=== PATIENT | male | born 1950 | race Caucasian/White ===

== ENCOUNTER 2023-08-30 11:40 | Inpatient (IN) | payer MEDICARE, OTHER ==
[~2023-08-30] VITALS: Ht 172.7 cm; Wt 57.2 kg
[2023-08-30] MEDS ORDERED: HALO5TAB PO (12:06)
[2023-08-30] MEDS ORDERED: HYDR-501 PO (12:06)
[2023-08-30] MEDS ORDERED: DIPH25CA83 PO (12:06)
[2023-08-30] MEDS ORDERED: MAG30ORA PO (12:06)
[2023-08-30] MEDS ORDERED: CLON0.5T4 PO (12:06)
[2023-08-30] MEDS ORDERED: MULT-213 PO (12:06)
[2023-08-30] MEDS ORDERED: DIVA250T PO (12:06)
[2023-08-30] MEDS ORDERED: ACET325C7 PO (12:06)
[2023-08-30] MEDS ORDERED: NICO1PAT35 TD (12:06)
[2023-08-30] MEDS ORDERED: ZOLP5TAB8 PO (12:06)
[2023-08-30] MEDS ORDERED: MAGN400O6 PO (12:06)
[2023-08-30 12:09] LABS: BASOPHILS % (AUTO) 0.2 % (0.0-2.0); EOSINOPHILS # (AUTO) 0.1 K/uL (0.0-0.7); EOSINOPHILS % (AUTO) 0.9 % (0.0-7.0); HEMOGLOBIN 15.6 g/dL (12.5-16.3); LYMPHOCYTES # (AUTO) 2.1 K/uL (0.8-4.8); LYMPHOCYTES % (AUTO) 20.8 % (20.5-51.5); MEAN CORPUSCULAR HEMOGLOBIN 30.2 uug (23.8-33.4); MEAN CORPUSCULAR HGB CONC 35 g/dL (32.5-36.3); MONOCYTES # (AUTO) 0.7 K/uL (0.1-1.30); MONOCYTES % (AUTO) 7.5 % (0.0-11.0); NEUTROPHILS % (AUTO) 70.6 % (38.5-71.5); PLATELET COUNT (AUTO) 137 K/uL (152-348); RED BLOOD CELL COUNT(AUTO) 5.16 MIL/uL (4.06-5.63); RED CELL DISTRIBUTION WIDTH 14.2 % (12.1-16.2)
[2023-08-30 12:16] LABS: DIFFERENTIAL COMMENT 1
[2023-08-30 12:21] LABS: AMMONIA < 10 umol/L (11-32)
[2023-08-30 12:23] LABS: ETHANOL < 3 MG/DL (0-10)
[2023-08-30 12:27] LABS: ACETAMINOPHEN 3.2 ug/mL (10-30); ALANINE AMINOTRANSFERASE 25 U/L (16-63); ALBUMIN 4.1 g/dL (3.4-5.0); ALKALINE PHOSPHATASE 87 U/L (50-136); ASPARTATE AMINOTRANSFERASE 14 U/L (15-37); BILIRUBIN,DIRECT 0.1 mg/dL (0.0-0.2); BILIRUBIN,TOTAL 0.7 mg/dL (0.2-1.0); CALCIUM 9.4 mg/dL (8.5-10.1); CARBON DIOXIDE 30 mmol/L (21-32); CHLORIDE 102 mmol/L (98-107); CREATININE 0.8 mg/dL (0.6-1.3); GLUCOSE 86 mg/dL (74-106); SODIUM SERUM 141 mmol/L (136-145); TOTAL PROTEIN, SERUM 7.3 g/dL (6.4-8.2); UREA NITROGEN, BLOOD 18 mg/dL (7-18)
[2023-08-30 13:24] LABS: THYROID STIMULATING HORMONE 3.484 mIU/mL (0.358-3.740)
[2023-08-30] MEDS ORDERED: Medication Not On Formulary EA (Acetaminophen (Tylenol) 650 MG) PO SCH (13:30)
[2023-08-30] MEDS ORDERED: DIVALPROEX ER 250 MG TAB.SR.24H PO SCH (17:00)
[2023-08-30 19:00] VITALS: BP 95/52; TEMP 98.3; O2SAT 98
[2023-08-30] MEDS ORDERED: MAG HYDROX/AL HYDROX/SIMETH 30 ML LIQUID UDC PO PRN (20:15)
[2023-08-30] MEDS ORDERED: MAGNESIUM HYDROXIDE 30 ML LIQUID UDC PO PRN (20:15)
[2023-08-30] MEDS: BLOOD SUGAR DIAGNOSTIC 1 EACH STRIP VI ONE (20:20)
[2023-08-30] MEDS: ZOLPIDEM 5 MG TABLET PO PRN (20:47)
[2023-08-31] MEDS ORDERED: DIVA250T4 PO (06:52)
[2023-08-31] MEDS ORDERED: DOCU250C14 PO (06:53)
[2023-08-31 08:09] VITALS: BP 113/58; TEMP 98.2; O2SAT 96
[2023-08-31] MEDS: MULTIVIT, IRON, MIN NO. 8, FA TABLET PO SCH (08:50)
[2023-08-31] MEDS: DIVALPROEX 250 MG TABLET.DR PO SCH (08:50)
[2023-08-31] MEDS: NICOTINE 21 MG/24HR PATCH TD SCH (08:51)
[2023-08-31] MEDS: HALOPERIDOL 5 MG TABLET PO SCH (13:15)
[2023-08-31] MEDS: CLONAZEPAM 0.5 MG TABLET PO SCH (13:16)
[2023-08-31 16:37] VITALS: BP 127/60; TEMP 97.8; O2SAT 96
[2023-08-31] MEDS: LORAZEPAM 1 MG TABLET PO PRN (20:28)
[2023-08-31] MEDS: ACETAMINOPHEN 325 MG TABLET PO PRN (21:43)
[2023-09-01 08:35] VITALS: BP 121/61; TEMP 97.7; O2SAT 98
[2023-09-01 16:20] LABS: VALPROIC ACID 19 ug/mL (50-100)
[2023-09-01 16:47] VITALS: BP 127/86; TEMP 97.7; O2SAT 98
[2023-09-01] MEDS ORDERED: DIVALPROEX 500 MG TABLET.DR PO SCH (17:00)
[2023-09-01 17:05] LABS: *BILIRUBIN,URIN NEGATIVE (NEGATIVE); *BLOOD, URINE NEGATIVE (NEGATIVE); *CLARITY,URINE CLEAR (CLEAR); *COLOR,URINE YELLOW (YELLOW); *KETONES,URINE NEGATIVE (NEGATIVE); *PROTEIN,URINE NEGATIVE (NEGATIVE); *UROBILINOGEN,URINE 0.2 E.U./dl (NORMAL); LEUKOCYTE ESTERASE ,URINE NEGATIVE (NEGATIVE); NITRITE, URINE NEGATIVE (NEGATIVE); UGLUCOSE NEGATIVE (NEGATIVE)
[2023-09-01 19:49] VITALS: BP 124/76; TEMP 97.9; O2SAT 96
[2023-09-01] MEDS: CLONAZEPAM 0.5 MG TABLET PO SCH (21:36)
[2023-09-01] MEDS: DIVALPROEX 500 MG TABLET.DR PO SCH (21:37)
[2023-09-02] MEDS ORDERED: HYDROXYZINE PAMOATE 25 MG CAPSULE PO PRN (08:15)
[2023-09-02] MEDS: ENSURE ENLIVE (VAN) 240 ML LIQUID PO SCH (08:22)
[2023-09-02 08:32] VITALS: BP 118/85; TEMP 98.1; O2SAT 98
[2023-09-02 16:02] VITALS: BP 103/59; TEMP 98; O2SAT 98
[2023-09-02 19:50] VITALS: BP 116/66; TEMP 98.1; O2SAT 96
[2023-09-03 08:00] VITALS: BP 91/59; TEMP 98; O2SAT 98
[2023-09-03] MEDS: CYANOCOBALAMIN 1,000 MCG TABLET PO SCH (08:30)
[2023-09-03 15:16] VITALS: BP 102/49; TEMP 98; O2SAT 98
[2023-09-03 22:49] VITALS: BP 132/58; TEMP 98.4; O2SAT 98
[2023-09-03 23:07] LABS: FOLATE (FOLIC ACID), SERUM 17.4 ng/mL (>3.0)
[2023-09-04] MEDS: CLONAZEPAM 0.5 MG TABLET PO SCH (08:50)
[2023-09-04 20:00] VITALS: BP_SYST 107; BP_SYST 122; BP_DIAS 51; BP_DIAS 62; TEMP 98; TEMP 98.1; O2SAT 94; O2SAT 99
[2023-09-05 08:05] VITALS: BP 107/48; TEMP 98.2; O2SAT 98
[2023-09-05 15:22] VITALS: BP 121/69; TEMP 98; O2SAT 98
[2023-09-05] MEDS: DIVALPROEX SPRINKLE 125 MG CAP.SPRINK PO SCH (15:43)
[2023-09-05 20:00] VITALS: BP 112/54; TEMP 97.8; O2SAT 95
[2023-09-06 08:01] VITALS: BP 106/52; TEMP 98.4; O2SAT 97
[2023-09-06 15:31] VITALS: BP 103/53; TEMP 98; O2SAT 99
[2023-09-06 19:46] VITALS: BP 109/55; TEMP 98; O2SAT 97
[2023-09-06] MEDS: CLONAZEPAM 0.5 MG TABLET PO SCH (20:43)
[2023-09-07 08:11] VITALS: BP 96/48; TEMP 97.6; O2SAT 98
[2023-09-07 16:57] VITALS: BP 94/46; TEMP 97.7; O2SAT 98
[2023-09-08 07:49] VITALS: BP 114/53; TEMP 97.6; O2SAT 98
[2023-09-08] MEDS: NICOTINE 14 MG/24HR PATCH TD SCH (08:31)
[2023-09-08 16:49] VITALS: BP 146/48; TEMP 98; O2SAT 97
[2023-09-08 20:00] VITALS: BP 119/55; TEMP 98.4; O2SAT 98
[2023-09-09 08:02] VITALS: BP 99/44; TEMP 97.9; O2SAT 98
[2023-09-09] MEDS: HALOPERIDOL LACTATE 10 MG/5 ML ORAL SOLUTION UDC PO SCH (08:44)
[2023-09-09] MEDS: VALPROIC ACID 250 MG/5 ML LIQUID UDC PO SCH (12:12)
[2023-09-09] MEDS ORDERED: VALPROIC ACID 250 MG CAPSULE PO SCH (13:00)
[2023-09-09 15:56] VITALS: BP 108/43; TEMP 97.9; O2SAT 97
[2023-09-09 20:10] VITALS: BP 106/46; TEMP 97.9; O2SAT 96
[2023-09-10 07:30] VITALS: BP 102/49; TEMP 98.2; O2SAT 98
[2023-09-10 15:22] VITALS: BP 126/64; TEMP 98; O2SAT 98
[2023-09-10 20:00] VITALS: BP 109/48; TEMP 98.5; O2SAT 95
[2023-09-10] MEDS: VALPROIC ACID 250 MG/5 ML LIQUID UDC PO SCH (20:29)
[2023-09-10] MEDS: HALOPERIDOL LACTATE 10 MG/5 ML ORAL SOLUTION UDC PO SCH (20:32)
[2023-09-11 08:00] VITALS: BP 100/65; TEMP 98; O2SAT 97
[2023-09-11 16:00] VITALS: BP 100/52; TEMP 98.6; O2SAT 97
[2023-09-11 20:16] VITALS: BP 106/62; TEMP 98.1; O2SAT 96
[2023-09-12 07:30] VITALS: BP 103/45; TEMP 98; O2SAT 96
[2023-09-12 15:04] VITALS: BP 111/61; TEMP 98; O2SAT 98
[2023-09-12 20:15] VITALS: BP 130/68; TEMP 97.8; O2SAT 96
[2023-09-13 07:30] VITALS: BP 117/49; TEMP 98.4; O2SAT 99
== END 2023-09-13 11:30 | DRG 885 ==
LOC: ER 11:41 → GPS 18:14
PROVIDERS: ADMIT Psychiatry & Neurology Psychiatry; ATTEND Nurse Practitioner Acute Care
DX: F25.0 Schizoaffective disorder, bipolar type (principal); N18.9 Chronic kidney disease, unspecified; F03.94 Unspecified dementia, unspecified severity, with anxiety; J44.9 Chronic obstructive pulmonary disease, unspecified; F17.210 Nicotine dependence, cigarettes, uncomplicated; G40.909 Epilepsy, unspecified, not intractable, without status epilepticus; M15.9 Polyosteoarthritis, unspecified; I12.9 Hypertensive chronic kidney disease with stage 1 through stage 4 chronic kidney disease, or unspecified chronic kidney disease; D69.6 Thrombocytopenia, unspecified; R62.7 Adult failure to thrive
CPT/HCPCS: 36415; 70450; 71045; 71250; 80164; 82746; 83605; 83921; 84443; 84484; 85025; 85730; 87040; 93005; G0480; J3490

== ENCOUNTER 2024-11-06 22:50 | Inpatient (IN) | payer MEDICARE, OTHER ==
[~2024-11-06] VITALS: Ht 167.6 cm; Wt 59.4 kg
[2024-11-06 22:50] VITALS: BP 144/77
[~2024-11-06 22:50] MED LIST: ACET325C7 PO; DIPH25CA83 PO; DIVA250T4 PO; DOCU250C14 PO; MAG30ORA PO; MAGN400O6 PO; MULT-213 PO; NICO1PAT35 TD
[2024-11-06] MEDS ORDERED: OLAN10TA73 PO (23:03)
[2024-11-06] MEDS ORDERED: DIPH25TA25 PO (23:03)
[2024-11-06] MEDS ORDERED: ACET-3117 PO (23:03)
[2024-11-06] MEDS ORDERED: HALO5TAB PO (23:03)
[2024-11-06] MEDS ORDERED: HALO50AM2 IM (23:03)
[2024-11-06] MEDS ORDERED: NICO-780 TD (23:03)
[2024-11-06] MEDS ORDERED: TRAZ-257 PO (23:03)
[2024-11-06] MEDS ORDERED: LACO50TA2 PO (23:03)
[2024-11-06] MEDS ORDERED: FOLI1TAB94 PO (23:03)
[2024-11-06] MEDS ORDERED: TRAZ-182 PO (23:03)
[2024-11-06] MEDS ORDERED: POLY250017 PO (23:03)
[2024-11-06] MEDS ORDERED: SENN8.6T19 PO (23:03)
[2024-11-06] MEDS ORDERED: DIVA500T2 PO (23:04)
[2024-11-06 23:31] LABS: *BILIRUBIN,URIN NEGATIVE (NEGATIVE); *BLOOD, URINE NEGATIVE (NEGATIVE); *CLARITY,URINE CLEAR (CLEAR); *COLOR,URINE YELLOW (YELLOW); *KETONES,URINE NEGATIVE (NEGATIVE); *PROTEIN,URINE NEGATIVE (NEGATIVE); *UROBILINOGEN,URINE 0.2 E.U./dl (NORMAL); LEUKOCYTE ESTERASE ,URINE NEGATIVE (NEGATIVE); NITRITE, URINE NEGATIVE (NEGATIVE); UGLUCOSE NEGATIVE (NEGATIVE)
[2024-11-06 23:37] LABS: PLATELET COUNT (AUTO) 149 K/uL (152-348); RED BLOOD CELL COUNT(AUTO) 5.26 MIL/uL (4.06-5.63); RED CELL DISTRIBUTION WIDTH 13.9 % (12.1-16.2); WHITE BLOOD COUNT (AUTO) 8.2 K/uL (3.6-10.2)
[2024-11-06 23:49] LABS: CREATININE 1.0 mg/dL (0.6-1.3); SODIUM SERUM 141 mmol/L (136-145); UREA NITROGEN, BLOOD 25 mg/dL (7-18)
[2024-11-06 23:55] LABS: ASPARTATE AMINOTRANSFERASE 14 U/L (15-37); ETHANOL < 3 MG/DL (0-10); TOTAL PROTEIN, SERUM 6.7 g/dL (6.4-8.2)
[2024-11-06 23:57] LABS: *AMPHETAMINE, URINE NEGATIVE (NEGATIVE); *BARBITURATE, URINE NEGATIVE (NEGATIVE); *BENZODIAZEPINE, URINE NEGATIVE (NEGATIVE); *CANNABINOID, URINE NEGATIVE (NEGATIVE); *COCCAINE, URINE NEGATIVE (NEGATIVE); *OPIATE, URINE NEGATIVE (NEGATIVE); *PHENCYCLIDINE SCREEN,URINE NEGATIVE (NEGATIVE); FENTANYL, URINE NEGATIVE (NEGATIVE)
[2024-11-07 01:15] VITALS: BP 123/52; TEMP 98.1; O2SAT 96
[2024-11-07] MEDS ORDERED: LORAZEPAM 0.5 MG TABLET PO PRN ×2 (01:30)
[2024-11-07] MEDS ORDERED: MAG HYDROX/AL HYDROX/SIMETH 30 ML LIQUID UDC PO PRN (01:30)
[2024-11-07] MEDS ORDERED: TEMAZEPAM 7.5 MG CAPSULE PO PRN (01:30)
[2024-11-07] MEDS ORDERED: MAGNESIUM HYDROXIDE 30 ML LIQUID UDC PO PRN (01:30)
[2024-11-07] MEDS: TEMAZEPAM 7.5 MG CAPSULE PO PRN (01:59)
[2024-11-07] MEDS: ACETAMINOPHEN 325 MG TABLET PO PRN (02:00)
[2024-11-07] MEDS: BLOOD SUGAR DIAGNOSTIC 1 EACH STRIP VI ONE (02:29)
[2024-11-07] MEDS ORDERED: HALO5SYR3 IM (05:58)
[2024-11-07] MEDS ORDERED: POLY17PO4 PO (08:44)
[2024-11-07] MEDS ORDERED: ACET-2154 PO (08:44)
[2024-11-07 09:07] VITALS: BP 115/51; TEMP 98; O2SAT 98
[2024-11-07] MEDS ORDERED: SENNOSIDES 1 TABLET PO PRN (14:00)
[2024-11-07 16:19] VITALS: BP 90/51; TEMP 98.2; O2SAT 98
[2024-11-07] MEDS ORDERED: DIVALPROEX 500 MG TABLET.DR PO SCH (17:00)
[2024-11-07] MEDS ORDERED: DIVALPROEX 250 MG TABLET.DR PO SCH (19:30)
[2024-11-07] MEDS: OLANZAPINE 5 MG TABLET PO SCH (21:00)
[2024-11-07] MEDS: LACOSAMIDE 50 MG TABLET PO SCH (21:04)
[2024-11-08 08:26] LABS: ASPARTATE AMINOTRANSFERASE 14 U/L (15-37); CREATININE 0.6 mg/dL (0.6-1.3); SODIUM SERUM 141 mmol/L (136-145); TOTAL PROTEIN, SERUM 6.6 g/dL (6.4-8.2); UREA NITROGEN, BLOOD 16 mg/dL (7-18)
[2024-11-08] MEDS: NICOTINE 21 MG/24HR PATCH TD SCH (08:42)
[2024-11-08] MEDS: MIRALAX 17 GM POWD.PACK PO SCH (08:42)
[2024-11-08] MEDS: DIVALPROEX 250 MG TABLET.DR PO SCH ×2 (08:42→16:40)
[2024-11-08] MEDS: FOLIC ACID 1 MG TABLET PO SCH (08:43)
[2024-11-08 08:58] VITALS: BP 122/63; TEMP 98.2; O2SAT 98
[2024-11-08] MEDS: ENSURE ENLIVE (VAN) 240 ML LIQUID PO SCH (09:00)
[2024-11-08] MEDS: OLANZAPINE 5 MG TABLET PO SCH (12:02)
[2024-11-08 16:35] VITALS: BP 119/61; TEMP 98; O2SAT 98
[2024-11-08] MEDS: BENZTROPINE MESYLATE 0.5 MG TABLET PO SCH (16:37)
[2024-11-08 19:58] VITALS: BP 139/62; TEMP 98.4; O2SAT 98
[2024-11-09 08:14] VITALS: BP 132/47; TEMP 98.4; O2SAT 98
[2024-11-09 16:29] VITALS: BP 127/61; TEMP 98; O2SAT 98
[2024-11-09 20:00] VITALS: BP 126/68; TEMP 98.1; O2SAT 96
[2024-11-10 08:46] VITALS: BP 123/73; TEMP 98.1; O2SAT 96
[2024-11-10 16:27] VITALS: BP 118/68; TEMP 98.1; O2SAT 96
[2024-11-10 20:07] VITALS: BP 122/64; TEMP 98.1; O2SAT 98
[2024-11-11 08:00] VITALS: BP 110/55; TEMP 97.8; O2SAT 97
[2024-11-11 15:43] VITALS: BP 132/55; TEMP 98.2; O2SAT 99
[2024-11-11 20:00] VITALS: BP 120/50; TEMP 98.3; O2SAT 97
[2024-11-12 08:26] VITALS: BP 125/68; TEMP 97.9; O2SAT 97
[2024-11-12 16:13] VITALS: BP 127/47; TEMP 97.9; O2SAT 98
[2024-11-12 20:00] VITALS: BP 122/70; TEMP 98.1; O2SAT 97
[2024-11-13 08:20] VITALS: BP 120/63; TEMP 98; O2SAT 99
[2024-11-13 20:00] VITALS: BP 121/76; TEMP 97.6; O2SAT 95
[2024-11-13 20:07] LABS: METHYLMALONIC ACID 298.0 nmol/L (0-378)
[2024-11-14 09:52] VITALS: BP 113/69; TEMP 98.2; O2SAT 98
[2024-11-14 15:46] VITALS: BP 115/55; TEMP 98; O2SAT 96
[2024-11-14 20:00] VITALS: BP 117/58; TEMP 97.3; O2SAT 95
[2024-11-15 08:32] VITALS: BP 122/61; TEMP 98; O2SAT 96
[2024-11-15 16:59] VITALS: BP 129/67; TEMP 98; O2SAT 96
[2024-11-15 20:00] VITALS: BP 127/61; TEMP 98; O2SAT 94
[2024-11-16 08:10] VITALS: BP 123/61; TEMP 98; O2SAT 96
[2024-11-16] MEDS: NICOTINE 14 MG/24HR PATCH TD SCH (08:45)
[2024-11-16 16:17] VITALS: BP 122/70; TEMP 98; O2SAT 96
[2024-11-16 20:14] VITALS: BP 118/66; TEMP 98.2; O2SAT 96
[2024-11-17 08:18] VITALS: BP 132/78; TEMP 98; O2SAT 96
[2024-11-17] MEDS: FOLIC ACID 1 MG TABLET PO SCH (08:56)
[2024-11-17] MEDS: VALPROIC ACID 250 MG/5 ML LIQUID UDC PO SCH (16:13)
[2024-11-17] MEDS: OLANZAPINE ZYDIS 5 MG TAB.RAPDIS PO SCH ×2 (16:14→20:38)
[2024-11-17 16:29] VITALS: BP 130/67; TEMP 98; O2SAT 96
[2024-11-17 20:11] VITALS: BP 136/66; TEMP 98.4; O2SAT 96
[2024-11-18 08:49] VITALS: BP 136/64; TEMP 97.5; O2SAT 99
[2024-11-18 15:58] VITALS: BP 110/53; TEMP 97.6; O2SAT 97
[2024-11-18] MEDS ORDERED: OLANZAPINE ZYDIS 5 MG TAB.RAPDIS PO SCH (21:00)
[2024-11-19 15:51] VITALS: BP 117/59; TEMP 98; O2SAT 98
[2024-11-19 20:00] VITALS: BP 103/45; TEMP 97.9; O2SAT 96
[2024-11-19] MEDS: OLANZAPINE ZYDIS 5 MG TAB.RAPDIS PO SCH (20:52)
[2024-11-20 07:54] VITALS: BP 120/62; TEMP 97.8; O2SAT 99
[2024-11-20 16:01] VITALS: BP 127/56; TEMP 98; O2SAT 99
[2024-11-20 20:00] VITALS: BP 119/65; TEMP 97.9; O2SAT 99
[2024-11-21 08:18] VITALS: BP 106/50; TEMP 98; O2SAT 99
[2024-11-21 15:38] VITALS: BP 123/58; TEMP 98; O2SAT 100
[2024-11-21 20:00] VITALS: BP 106/52; TEMP 97.9; O2SAT 66
[2024-11-22 08:28] VITALS: BP 103/45; TEMP 98; O2SAT 100
[2024-11-22 16:56] VITALS: BP 116/61; TEMP 98; O2SAT 100
[2024-11-22 20:00] VITALS: BP 116/60; TEMP 97.8; O2SAT 97
[2024-11-23 08:28] VITALS: BP 127/71; TEMP 98; O2SAT 100
[2024-11-23 16:55] VITALS: BP 131/79; TEMP 98; O2SAT 100
[2024-11-23 20:00] VITALS: BP 114/58; TEMP 97.7; O2SAT 95
[2024-11-24 08:12] VITALS: BP 128/55; TEMP 98; O2SAT 100
[2024-11-24] MEDS: VALPROIC ACID 250 MG/5 ML LIQUID UDC PO ONE (12:14)
[2024-11-24] MEDS: OLANZAPINE 10 MG VIAL IM ONE (13:22)
[2024-11-24] MEDS: VALPROIC ACID 250 MG/5 ML LIQUID UDC PO SCH (16:38)
[2024-11-24 20:00] VITALS: BP 107/56; TEMP 98; O2SAT 95
[2024-11-24] MEDS: LORAZEPAM 1 MG TABLET PO PRN (21:11)
[2024-11-25 07:41] VITALS: BP 108/63; TEMP 97.7; O2SAT 96
[2024-11-25] MEDS: OLANZAPINE ZYDIS 5 MG TAB.RAPDIS PO SCH ×2 (13:17→21:17)
[2024-11-25 16:00] VITALS: BP 111/67; TEMP 97.1; O2SAT 96
[2024-11-25 20:00] VITALS: BP 83/52; TEMP 98.2; O2SAT 97
[2024-11-25 21:17] VITALS: BP 108/60; O2SAT 97
[2024-11-26 07:21] LABS: PLATELET COUNT (AUTO) 106 K/uL (152-348); RED BLOOD CELL COUNT(AUTO) 5.09 MIL/uL (4.06-5.63); RED CELL DISTRIBUTION WIDTH 14.2 % (12.1-16.2); WHITE BLOOD COUNT (AUTO) 6.2 K/uL (3.6-10.2)
[2024-11-26 07:41] LABS: CREATININE 0.7 mg/dL (0.6-1.3); SODIUM SERUM 142 mmol/L (136-145); UREA NITROGEN, BLOOD 16 mg/dL (7-18); VALPROIC ACID 38 ug/mL (50-100)
[2024-11-26 08:24] VITALS: BP 102/57; TEMP 98; O2SAT 96
[2024-11-26 15:54] VITALS: BP 114/50; TEMP 98; O2SAT 98
[2024-11-26 20:09] VITALS: BP 112/62; TEMP 98.2; O2SAT 98
[2024-11-27 08:09] VITALS: BP 131/71; TEMP 98; O2SAT 96
[2024-11-27 15:17] VITALS: BP 130/68; TEMP 98; O2SAT 98
[2024-11-27 19:37] VITALS: BP 128/66; TEMP 98.1; O2SAT 98
[2024-11-28 08:27] VITALS: BP 117/52; TEMP 98; O2SAT 98
[2024-11-28] MEDS: VALPROIC ACID 250 MG/5 ML LIQUID UDC PO SCH (09:00)
[2024-11-28 15:18] VITALS: BP 116/47; TEMP 98; O2SAT 99
[2024-11-28 20:02] VITALS: BP 112/61; TEMP 97.9; O2SAT 98
[2024-11-29 08:24] VITALS: BP 136/59; TEMP 98; O2SAT 98
[2024-11-29] MEDS: LORAZEPAM 2 MG/1 ML VIAL IM ONE (09:17)
[2024-11-29] MEDS: HALOPERIDOL LACTATE 5 MG/1 ML VIAL IM ONE (09:19)
[2024-11-29] MEDS: diphenhydrAMINE 50 MG/1 ML VIAL IM ONE (09:20)
[2024-11-30] MEDS: LITHIUM CARBONATE 150 MG CAPSULE PO SCH (17:05)
[2024-11-30 20:00] VITALS: BP 114/63; TEMP 97.8; O2SAT 97
[2024-12-01 08:11] LABS: PLATELET COUNT (AUTO) 91 K/uL (152-348); RED BLOOD CELL COUNT(AUTO) 5.20 MIL/uL (4.06-5.63); RED CELL DISTRIBUTION WIDTH 13.9 % (12.1-16.2); WHITE BLOOD COUNT (AUTO) 5.6 K/uL (3.6-10.2)
[2024-12-01 08:35] LABS: ASPARTATE AMINOTRANSFERASE 9 U/L (15-37); CREATININE 0.6 mg/dL (0.6-1.3); SODIUM SERUM 145 mmol/L (136-145); TOTAL PROTEIN, SERUM 6.3 g/dL (6.4-8.2); UREA NITROGEN, BLOOD 12 mg/dL (7-18); VALPROIC ACID 24 ug/mL (50-100)
[2024-12-01 20:00] VITALS: BP 112/53; TEMP 97.7; O2SAT 95
[2024-12-01] MEDS: LITHIUM CARBONATE 150 MG CAPSULE PO SCH (20:31)
[2024-12-02 08:00] VITALS: BP 99/49; TEMP 97.7; O2SAT 95
[2024-12-02 16:00] VITALS: BP 99/60; TEMP 98.2; O2SAT 97
[2024-12-02] MEDS ORDERED: NICO-671 TD (17:52)
[2024-12-02] MEDS ORDERED: DIPH50CA37 PO (17:52)
[2024-12-02] MEDS ORDERED: FOLI1TAB94 PO (17:52)
[2024-12-02] MEDS ORDERED: MAGN400O6 PO (17:52)
[2024-12-02] MEDS ORDERED: LACO50TA2 PO (17:52)
== END 2024-12-02 18:30 | DRG 885 ==
LOC: ER 22:50 → GPS 11-07 00:36
PROVIDERS: ADMIT Psychiatry & Neurology Psychosomatic Medicine; ATTEND Internal Medicine
DX: F25.0 Schizoaffective disorder, bipolar type (principal); E78.5 Hyperlipidemia, unspecified; G40.909 Epilepsy, unspecified, not intractable, without status epilepticus; F41.9 Anxiety disorder, unspecified; I25.10 Atherosclerotic heart disease of native coronary artery without angina pectoris; F29 Unspecified psychosis not due to a substance or known physiological condition; D69.6 Thrombocytopenia, unspecified; M19.90 Unspecified osteoarthritis, unspecified site; R62.7 Adult failure to thrive; Z71.6 Tobacco abuse counseling; J44.9 Chronic obstructive pulmonary disease, unspecified; Z20.822 Contact with and (suspected) exposure to COVID-19; F39 Unspecified mood [affective] disorder; F17.210 Nicotine dependence, cigarettes, uncomplicated; I70.0 Atherosclerosis of aorta; M62.81 Muscle weakness (generalized); F32.A Depression, unspecified; I49.1 Atrial premature depolarization; Z68.21 Body mass index [BMI] 21.0-21.9, adult; Z79.899 Other long term (current) drug therapy; G31.84 Mild cognitive impairment of uncertain or unknown etiology; Z73.6 Limitation of activities due to disability
CPT/HCPCS: 36415; 80164; 83921; 84443; 85025; 93005; G0480; J1200; J1630; J2060; J2358; J3490; Q0163